=== PATIENT | male | born 1950 | race Caucasian/White ===

== ENCOUNTER 2017-04-05 03:48 | Inpatient (IN) | payer OTHER, BC ==
--- NOTE | 2017-04-05 04:09 | EDPHY ---
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 Patient states that he did a hot yoga class and was very vigorous before going out having sushi last night. Patient tells me that he went had sushi then shortly after he developed severe epigastric achy pain that stays in his epigastric region he has been uncomfortable all night tossing and turning and unable to sleep. He has had associated nausea with this. No vomiting. No diarrhea. He denies shortness of breath however patient tells me that at 1 point the dull achy pain in his epigastric region that is been present constantly from 0930 last night and now 427AM: Is still present. He tells me at 1 point it did radiate a little bit into his left chest. However no shortness of breath or chest pain at this time. Pain is located epigastric region. It is tender mildly on exam. 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 Exam Constitutional appears well nontoxic, triage nursing summary reviewed, vital signs reviewed, awake/alert. Eyes normal conjunctivae and sclera, EOMI, PERRLA. HENT normal inspection, atraumatic, moist mucus membranes, no epistaxis, neck supple/ no meningismus, no raccoon eyes. Respiratory clear to auscultation bilaterally, normal breath sounds, no respiratory distress, no wheezing. Cardiovascular rate normal, regular rhythm, no murmur, no edema, distal pulses normal. Gastrointestinal soft, tender palpation in the epigastric region , no rebound , no guarding, normal bowel sounds, no distension, no pulsatile mass. Genitourinary no CVA tenderness. Musculoskeletal no midline vertebral tenderness, full range of motion, no calf swelling, no tenderness of extremities, no meningismus, good pulses, neurovascularly intact. Skin pink, warm, & dry, no rash, skin atraumatic. Neurologic awake, alert and oriented x 3, AAOx3, moves all 4 extremities equally, motor intact, sensory intact, CN II-XII intact, normal cerebellar, normal vision, normal speech. Psychiatric normal mood/affect. Heme/Lymph/Immune no lymphadenopathy. Differential diagnosis includes but is not limited to and in no particular order : Rule out acute coronary syndrome, Bowel obstruction, appendicitis, gallbladder disease, diverticulitis, colitis, enteritis, perforated viscus, gastritis, GERD, esophagitis, urinary tract infection, pyelonephritis, kidney stones Medical Decision Making: Plan for this patient IV establishment, full photolith operator will check a troponin and EKG given where pain is located however clinically on exam I feel this is more abdominal pain and chest pain. Will obtain EKG troponin, chest x-ray he will be given a GI cocktail to see if this improves his epigastric discomfort. Will check liver enzymes and lipase. Gentle hydration and close re-evaluation. Re-evaluation: EKG interpretation by me on record in [employer] system. Impression time of EKG 4 5:00 a.m., this is sinus rhythm rate of 62 there is no acute ischemic Changes specifically no ST elevation or ST depression 0517AM: This patient noted to have a positive D-dimer over 6. I will proceed with CT angiogram chest abdomen pelvis for pulmonary embolism versus dissection. He is having epigastric pain. His EKG does not indicating acute ischemia. Need to rule out pulmonary embolism and dissection. Chest x-ray one view: Negative for acute cardiopulmonary disease. Image interpreted by myself. 0512AM: This patient does report to me that after GI cocktail his epigastric discomfort has improved. He Still has epigastric abdominal pain. CT scan of the chest abdomen pelvis with IV contrast. The results of the study are show no dissection of the aorta, no aortic dissection or aneurysm, no pulmonary embolism however it does show a high-grade mechanical small-bowel obstruction.. The study was read by Dr. Moreno I viewed the images myself on the PACS system. 0621AM: This patient's scan does not show PE or dissection his EKG is nonischemic, troponin negative. His CT scan does show SBO. I will consult surgery. 0621AM: Dr. Huang. is here evaluating him. 0658AM: Patient seen By Dr. Huang. Recommends Small Bowel follow through with grastrografin. 0732: Patient to get Gastrografin for small-bowel follow-through. Dr. Huang to follow this up. Dr. Beltran aware of this patient in the emergency room. If Gastrografin small-bowel follow-through okay he me be able to be discharged. Source: Patient - Personal History Current Tetanus/Diphtheria Vaccine: Yes Current Tetanus Diphtheria and Acellular Pertussis (TDAP): Yes - Medical/Surgical History Hx Asthma: No Hx Chronic Respiratory Disease: No Hx Diabetes: No Hx Cardiac Disease: No Hx Renal Disease: No Hx Cirrhosis: No Hx Alcoholism: No Hx HIV/AIDS: No Hx Splenectomy or Spleen Trauma: No Other PMH: BRONCITIS, SINUS STUFF, L HIP REPLACEMENT, KNEE SURGERY - Social History Smoking Status: Never smoked Constitutional: Initial Vital Signs Temperature (C) 36.6 C 04/05/17 03:49 Heart Rate 71 04/05/17 03:49 Respiratory Rate 18 04/05/17 03:49 Blood Pressure 161/100 H 04/05/17 03:49 O2 Sat (%) 96 04/05/17 03:49 O2 Delivery Mode Room Air Allergies/Adverse Reactions: ciprofloxacin [From Cipro] Allergy (Intermediate, Verified 04/05/17 13:22) Vomiting metronidazole [From Flagyl] Allergy (Intermediate, Verified 04/05/17 13:23) Vomiting Home Medications: Medication Instructions Recorded Albuterol [Proventil Inhaler HFA 1 - 2 puffs IH Q4H PRN 04/05/17 (*)] Fluticasone Nasal [Flonase Nasal 1 sprays NASAL BID PRN 04/05/17 Stephen (RX)] Medical Decision Making - Data Points Laboratory Results: Laboratory Results 04/05/17 04:10 04/05/17 04:10 Medications Given: Discontinued Medications Al Hydroxide/Mg Hydroxide (Maalox Susp) 30 ml PO ONCE ONE Stop: 04/05/17 04:24 Last Admin: 04/05/17 04:30 Dose: 30 ml Fentanyl (Sublimaze) 50 mcg IVP ONCE ONE Stop: 04/05/17 07:39 Last Admin: 04/05/17 07:44 Dose: Not Given Fentanyl (Sublimaze) 50 mcg IVP EDNOW ONE Stop: 04/05/17 07:44 Last Admin: 04/05/17 07:44 Dose: 50 mcg Hyoscyamine Sulfate (Levsin, Hyomax-Sl) 0.25 mg PO ONCE ONE Stop: 04/05/17 04:24 Last Admin: 04/05/17 04:29 Dose: 0.25 mg Sodium Chloride (Ns) 1,000 mls @ 0 mls/hr IV ONCE ONE PRN Reason: Wide Open Stop: 04/05/17 04:24 Last Admin: 04/05/17 04:37 Dose: 1,000 mls Sodium Chloride (Ns) 1,000 mls @ 0 mls/hr IV ONCE ONE PRN Reason: Wide Open Stop: 04/05/17 09:21 Last Admin: 04/05/17 09:21 Dose: 1,000 mls Cefoxitin Sodium 2 gm/ (Dextrose) 100 mls @ 200 mls/hr IV ONCALL ONE PRN Reason: Protocol Stop: 04/05/17 13:08 Last Admin: 04/05/17 14:06 Dose: Not Given Ketorolac Tromethamine (Toradol) 30 mg IVP ONCE ONE Stop: 04/05/17 07:20 Last Admin: 04/05/17 09:15 Dose: 30 mg Lidocaine (Lidocaine 2% Viscous) 15 ml PO ONCE ONE Stop: 04/05/17 04:24 Last Admin: 04/05/17 04:30 Dose: 15 ml Ondansetron HCl (Zofran) 4 mg IVP EDNOW ONE Stop: 04/05/17 09:21 Last Admin: 04/05/17 09:20 Dose: 4 mg Departure - Departure Disposition: [facility] Acute Clinical Impression: SBO (small bowel obstruction) Condition: Fair
[2017-04-05] MEDS ORDERED: NS 1,000 ML IV ONE ×2 (04:23→09:20)
[2017-04-05] MEDS ORDERED: LIDOCAINE 2% VISCOUS 15 ML UDCUP PO ONE (04:23)
[2017-04-05] MEDS ORDERED: MAG HYDROX/AL HYDROX/SIMETH 30 ML UDCUP PO ONE (04:23)
[2017-04-05] MEDS ORDERED: HYOSCYAMINE SULFATE 0.125 MG TAB PO ONE (04:23)
[2017-04-05 04:28] LABS: % IMMATURE GRANULYOCYTES 0.5 % (0.0-1.1); ABSOLUTE IMMATURE GRANULOCYTES 0.05 10^3/uL (0.00-0.10); ADD DIFF? NO; ADD MORPH? NO; ADD SCAN? NO; ATYPICAL LYMPHOCYTE FLAG 0 (0-99); FRAGMENT RBC FLAG 0 (0-99); HEMATOCRIT 47.9 % (40.0-51.0); HEMOGLOBIN 16.8 g/dL (13.7-17.5); LEFT SHIFT FLG 0 (0-99); LIPEMIA HEMOLYSIS FLAG 90 (0-99); MEAN CELL HEMOGLOBIN 31.5 pg (27.9-34.1); MEAN CELL HEMOGLOBIN CONCENTR. 35.1 g/dL (32.4-36.7); MEAN CELL VOLUME 89.9 fL (81.5-99.8); MEAN PLATELET VOLUME 10.3 fL (8.7-11.7); PLATELET CLUMPS FLAG 0 (0-99); PLATELET COUNT 260 10^3/uL (150-400); RED BLOOD CELL COUNT 5.33 10^6/uL (4.40-6.38); RED CELL DISTRIBUTION WIDTH 12.1 % (11.5-15.2)
[2017-04-05 04:34] LABS: ALANINE AMINOTRANSFERASE 39 IU/L (21-72); ALBUMIN 4.5 g/dL (3.5-5.0); ALKALINE PHOSPHATASE 101 IU/L (38-126); ANION GAP 12 mEq/L (8-16); ASPARTATE AMINOTRANSFERASE 32 IU/L (17-59); BILIRUBIN,TOTAL 0.7 mg/dL (0.1-1.4); BILIRUBIN-CONJUGATED 0.3 mg/dL (0.0-0.5); BILIRUBIN-UNCONJUGATED 0.4 mg/dL (0.0-1.1); CALCIUM 9.8 mg/dL (8.5-10.4); CARBON DIOXIDE 24 mEq/l (22-31); CHLORIDE 106 mEq/L (97-110); GLOMERULAR FILTRATION RATE > 60; GLUCOSE 115 mg/dL (70-100); POTASSIUM 4.1 mEq/L (3.5-5.2); SODIUM 142 mEq/L (134-144); TOTAL PROTEIN 7.8 g/dL (6.3-8.2)
[2017-04-05 04:40] LABS: INR 1.01 (0.83-1.16); PROTIME(PATIENT) 13.2 SEC (12.0-15.0)
[2017-04-05 04:41] LABS: APTT 29.8 SEC (23.0-38.0)
--- NOTE | 2017-04-05 04:45 | CPEKG ---
Heart Rate: 62 RR Interval: 968 P-R Interval: 172 QRSD Interval: 78 QT Interval: 452 QTC Interval: 459 P Sherwood: 60 QRS Sherwood: 20 T Wave Sherwood: 74 EKG Severity - NORMAL ECG - EKG Impression: SINUS RHYTHM Electronically Signed By: Amari Gilliland 05-Apr-2017 07:35:04
[2017-04-05 04:46] LABS: TROPONIN I < 0.012 ng/mL (0-0.034)
[2017-04-05] MEDS ORDERED: IOPAMIDOL (ISOVUE 370) 100 ML BTL IV ONE (05:22)
[2017-04-05] MEDS ORDERED: KETOROLAC 30 MG/1 ML SDV IVP ONE (07:19)
[2017-04-05] MEDS ORDERED: fentaNYL 100 MCG/2 ML INJ IVP ONE ×2 (07:38→07:43)
[2017-04-05] MEDS ORDERED: fentaNYL 100 MCG/2 ML INJ ONE ×4 (07:40→16:00)
--- NOTE | 2017-04-05 07:44 | GCON ---
[f rep st] CONSULTATION DATE OF CONSULTATION: 04/05/2017 REFERRING PHYSICIAN: Amari Gilliland MD REASON FOR EVALUATION: Possible small-bowel obstruction. REASON FOR CONSULTATION: 66-year-old, healthy male, visiting from [place] on a psychiatric retreat, who presents to the emergency room with sudden onset diffuse crampy abdominal pain, starting at 07:30 last evening after eating sushi. He had a bowel movement at 11 o'clock. His pain continued to persist throughout the evening bringing him to the emergency room earlier this morning. ED workup was initially most significant for epigastric discomfort. A cardiac workup was initially entertained, which was unremarkable. Because of a positive D-dimer, the patient underwent axial body imaging. Abdominal images disclosed markedly dilated small bowel with concern for high-grade small-bowel obstruction. Surgery has been requested for further recommendations. The patient was on a recent trip to visit his family in [facility]. Upon return, he was initially complaining of diarrhea, for which he was treated with Cipro and Flagyl back in [place]. Those symptoms were associated with reflux, with associated bronchitis and cough, which has managed with Flonase. He reports that today's symptoms are completely different than those. He has never had a prior abdominal surgery. He reports that since ED arrival his pain has slightly improved. PAST SURGERY HISTORY: GERD. PAST SURGICAL HISTORY: Multiple knee scopes, as well as open repair. SOCIAL HISTORY: No alcohol, no tobacco. He is . He is a practicing psychiatrist. MEDICATIONS: None. FAMILY HISTORY: Noncontributory. REVIEW OF SYSTEMS: Notable for above GI complaints only. Otherwise, negative 10 point review. PHYSICAL EXAMINATION: VITAL SIGNS: Temperature 36.6, blood pressure 160/100, pulse 64, respirations 16. GENERAL: The patient is alert, appropriate, comfortable, anicteric. NECK: No cervical or supraclavicular lymphadenopathy. HEART: Regular. LUNGS: Clear. ABDOMEN: Distended, soft, minimal diffuse tenderness. No rebound. No guarding. EXTREMITIES: Unremarkable. NEUROLOGIC : Unremarkable. LABORATORY DATA: White count 10, hemoglobin 17, platelets of 260. Electrolytes within reference range. Liver enzymes normal. Troponin negative. D-dimer 6. CT imaging of the chest, abdomen and pelvis were directly reviewed on PACS. Abdomen notes probably dilated small bowel loops with fecalization, with a possible transition zone distally and areas of mesenteric edema and small surrounding free fluid. IMPRESSION: Acute onset abdominal pain. Possible high-grade distal small- bowel obstruction. Query possible gastroenteritis, given the constellation of symptoms, and improvement. RECOMMENDATIONS: Will proceed with Gastrografin upper GI for further characterization. If evidence of obstruction, will plan to proceed with diagnostic laparoscopy with reduction afterwards given no antecedent history of abdominal surgery. If Gastrografin continues to clear, the patient can be discharged with expectant management. These findings were discussed with the emergency room physician, Dr. Gilliland. /[id number]/MODL MTDD
[2017-04-05] MEDS ORDERED: ONDANSETRON 4 MG/2 ML VIAL ONE (09:18)
[2017-04-05] MEDS ORDERED: ONDANSETRON 4 MG/2 ML VIAL IVP ONE (09:20)
[2017-04-05] MEDS ORDERED: cefOXitin SODIUM 2 GM in D5W 100 ML IV ONE (12:39)
[2017-04-05] MEDS ORDERED: BUPIVACAINE/EPI 0.5% 30 ML SDV ONE (13:01)
[2017-04-05] MEDS ORDERED: MIDAZOLAM 2 MG/2 ML VIAL ONE (13:49)
[2017-04-05] MEDS ORDERED: PROPOFOL/EMULSION 500 MG/50 ML BOTTLE IV ONE (13:51)
[2017-04-05] MEDS ORDERED: SUCCINYLCHOLINE CHLORIDE*ANESTHESIA ONLY*200 MG/10 ML SYR IVP ONE (14:35)
[2017-04-05] MEDS ORDERED: HYDROmorphONE/DILAUDID 2 MG/ML INJ ONE ×2 (14:38→16:00)
[2017-04-05] MEDS ORDERED: LABETALOL HCL 5 MG/ML 20 ML MDV ONE (14:45)
[2017-04-05] MEDS ORDERED: SUGAMMADEX SODIUM 200 MG/2 ML VIAL IVP ONE (14:54)
[2017-04-05] MEDS ORDERED: PROPOFOL 200 MG/20 ML VIAL ONE (15:33)
--- NOTE | 2017-04-05 15:46 | POSTOPPROG ---
Post Op Note Date of Operation: 04/05/17 Surgeon: Gabriel Huang Anesthesiologist: Dylan Anesthesia: GET(General Endotracheal) Pre-op Diagnosis: SBO Post-op Diagnosis: Same Procedure: Lap SBR Findings: ileal stricture with proximal obstruction Inf/Abcess present in the surg proc area at time of surgery?: No EBL: Minimal Complications: no immediate Specimen(s): ileum
[2017-04-05] MEDS ORDERED: ZOLPIDEM TARTRATE 5 MG TAB PO PRN (15:47)
[2017-04-05] MEDS ORDERED: HYDROmorphONE/DILAUDID 1 MG/ML SYR IVP PRN (15:47)
[2017-04-05] MEDS ORDERED: ONDANSETRON 4 MG/2 ML VIAL IVP PRN (15:47)
[2017-04-05] MEDS ORDERED: ALBUTEROL 3 ML DEYVIAL ONE (15:48)
[2017-04-05] MEDS ORDERED: KETOROLAC 15 MG/1 ML SDV ONE (16:11)
--- NOTE | 2017-04-05 16:24 | GOP ---
[f rep st] OPERATIVE REPORT DATE OF OPERATION: 04/05/2017 SURGEON: Gabriel Huang MD ANESTHESIA: General. ANESTHESIOLOGIST: Dr. Richardson. PREOPERATIVE DIAGNOSIS: Small bowel obstruction. POSTOPERATIVE DIAGNOSIS: Small bowel obstruction. PROCEDURE PERFORMED: Laparoscopic small bowel resection. FINDINGS: Ileal stricture. INDICATIONS: 66-year-old male with a multiple month history of progressive digestive issues. He presents to the emergency room while visiting from out of town with the findings of a small bowel obstruction. He has never had prior abdominal surgery. He is undergoing surgical exploration at this time. DESCRIPTION OF PROCEDURE: General anesthesia was induced. The abdomen was preinjected with 0.5% Marcaine with epinephrine. A Veress needle was placed in the infraumbilical position, followed by a 5 mm trocar. 2 additional left lower quadrant 5 mm ports were inserted. Abdominal exploration revealed a completely decompressed distal ilium. Around the mid ilium was a focal stricture with a completely dilated proximal bowel with areas of edema and mild hemorrhage. There was no fat creeping or bowel wall thickening. The mesentery appeared normal. There was a moderate amount of clear ascitic fluid. The bowel was run toward the ligament of Treitz showing no other areas of suspicion. Liver appeared normal. Visceral surfaces were normal. The stomach was dilated, otherwise normal. The omentum was normal. The midline incision was partially extended allowing for the small bowel to be eviscerated. Digital palpation disclosed a focal stricture without definite mass at this location. The segment was subsequently resected in side to side fashion using 2 firings of the endoscopic AMPARO 75 stapler. The mesenteric dissection was taken between clamps and ties. Excellent luminal patency was assured. Both ends appeared pink, healthy and viable. The bowel was returned to the abdominal cavity. The midline fascia was closed with a running Vicryl suture. The scope was reinserted in the abdominal cavity showing healthy-appearing anastomosis and no bleeding. Trocars were removed under direct visualization. The wounds were closed with Monocryl followed by Dermabond. The patient was taken to recovery room awake, in good condition. /[id number]/MODL MTDD
[2017-04-05] MEDS: KETOROLAC 15 MG/1 ML SDV IVP SCH ×2 (17:46→23:15)
[2017-04-05] MEDS: ALBUTEROL 200 PUFFS/18 GM MDI IH PRN (23:15)
[2017-04-05] MEDS: FLUTICASONE NASAL 120 SPRAYS/16 GM MDI NS PRN (23:25)
[2017-04-06] MEDS: D5W LR 1,000 ML IV SCH ×2 (01:44→10:34)
[2017-04-06] MEDS: KETOROLAC 15 MG/1 ML SDV IVP SCH ×4 (05:23→23:49)
[2017-04-06] MEDS: ALBUTEROL 200 PUFFS/18 GM MDI IH PRN ×3 (14:54→21:02)
--- NOTE | 2017-04-06 16:23 | SOAPPROG ---
SOAP Progress Note Assessment/Plan: Assessment:good night. incisional pain only. +flatus. c/o nasal congestion. avss. comfortable. abd dist, soft. incis clean. pod#1 s/p lap SBR. doing well. NG removed. cont IVF (concentrated urine/chronic dehydration). diet as able. plan for discharge friday assuming no issues (here from [place] - has air BnB). path pending. he will be moving permanently from [place] to [place] upon return home this week. final follow-up TBD pending pathology. repeat lytes in am Plan: 04/06/17 16:20 Objective: Vital Signs Temp Pulse Resp BP Pulse Ox 37.3 C 89 16 156/97 H 91 L 04/06/17 15:36 04/06/17 15:36 04/06/17 15:36 04/06/17 15:36 04/06/17 15:36 04/05/17 04/06/17 04/07/17 05:59 05:59 05:59 Intake Total 4550 2279 Output Total 1050 0 Balance 3500 229 PT 13.2 SEC (12.0-15.0) 04/05/17 04:10 INR 1.01 (0.83-1.16) 04/05/17 04:10 ICD10 Worksheet Patient Problems: Problems Problem Status Onset SBO (small bowel obstruction) Acute
[2017-04-06] MEDS: TEARS/DEXTRAN 70/HYPROMELLOSE 15 ML OPHT.BTL EACHEYE PRN (16:48)
[2017-04-06] MEDS: LR 1,000 ML IV SCH ×2 (17:00→19:30)
[2017-04-06] MEDS: FLUTICASONE NASAL 120 SPRAYS/16 GM MDI NS PRN (21:01)
[2017-04-06] MEDS: HYDROCODONE/APAP 5/325 TAB PO PRN (21:07)
[2017-04-07] MEDS: HYDROCODONE/APAP 5/325 TAB PO PRN (00:01)
[2017-04-07] MEDS: ALBUTEROL 200 PUFFS/18 GM MDI IH PRN ×2 (01:51→12:27)
[2017-04-07 05:05] LABS: ANION GAP 4 mEq/L (8-16); CALCIUM 8.6 mg/dL (8.5-10.4); CARBON DIOXIDE 26 mEq/l (22-31); CHLORIDE 104 mEq/L (97-110); GLOMERULAR FILTRATION RATE > 60; GLUCOSE 106 mg/dL (70-100); POTASSIUM 4.1 mEq/L (3.5-5.2); SODIUM 134 mEq/L (134-144)
[2017-04-07] MEDS: FLUTICASONE NASAL 120 SPRAYS/16 GM MDI NS PRN ×2 (12:27→21:36)
[2017-04-07] MEDS: KETOROLAC 15 MG/1 ML SDV IVP SCH ×3 (13:07→21:56)
[2017-04-07] MEDS ORDERED: DICYCLOMINE 10 MG CAP PO PRN (14:56)
--- NOTE | 2017-04-07 14:56 | SOAPPROG ---
SOAP Progress Note Assessment/Plan: Assessment:c/o sinus pain - prior sinusitis on Z xuan. large, thick, gooey, green drainage. +BM. crampy pain improves with flatus. no nausea. avss. comfortable. tender max/ethmoid sinus bilaterally. abd dist, soft. incis clean. pod#2 s/p lap SBR. doing well. lytes normal. dehydration improved. diet as able. restart zpak. plan for discharge friday/friday assuming no issues (here from [place] - [facility] BnB). path pending. he will be moving permanently from [place] to [place] upon return home this week. final follow-up TBD pending pathology. cont supportive care Plan: 04/06/17 16:20 04/07/17 14:54 Objective: Vital Signs Temp Pulse Resp BP Pulse Ox 37.6 C 87 16 173/94 H 91 L 04/07/17 11:34 04/07/17 11:34 04/07/17 11:34 04/07/17 11:34 04/07/17 11:34 Laboratory Results 04/07/17 04:20 04/06/17 04/07/17 04/08/17 05:59 05:59 05:59 Intake Total 4550 3601 Output Total 1050 2125 525 Balance 3500 1476 -525 PT 13.2 SEC (12.0-15.0) 04/05/17 04:10 INR 1.01 (0.83-1.16) 04/05/17 04:10 ICD10 Worksheet Patient Problems: Problems Problem Status Onset SBO (small bowel obstruction) Acute
[2017-04-07] MEDS ORDERED: AZITHROMYCIN 250 MG TAB PO ONE (14:57)
[2017-04-07] MEDS: TEARS/DEXTRAN 70/HYPROMELLOSE 15 ML OPHT.BTL EACHEYE PRN (21:39)
[2017-04-08] MEDS: KETOROLAC 15 MG/1 ML SDV IVP SCH ×3 (05:40→18:23)
--- NOTE | 2017-04-08 09:46 | SOAPPROG ---
SOAP Progress Note Assessment/Plan: Assessment: POD 3 s/p lap SBR. Patient slept well. + Flatus. Last BM yesterday. Pain reasonably controlled- worse with coughing. Sinus pain and green drainage improving- started on Zpack yesterday. No nausea. Ambulating without difficulty. afeb, VSS, abd soft, distended, mild appropriate tenderness. + ecchymosis. Incision clean, dry, intact. Plan: Path pending. Monitor 1 more day - tentatively plan for D/C tomorrow. Spoke with Blanca (covering for Dr Rosario- pt 's PCP in [place]). Patient will follow up with Dr. Rosario within the week of returning home. He is currently planning to return to [place] tomorrow afternoon and will be there for 10 days before permanently moving to [place]. Plan: 04/08/17 09:45 04/08/17 09:46 Objective: Vital Signs Temp Pulse Resp BP Pulse Ox 36.9 C 77 18 154/94 H 93 04/08/17 07:56 04/08/17 07:56 04/08/17 07:56 04/08/17 07:56 04/08/17 07:56 Laboratory Results 04/07/17 04:20 04/07/17 04/08/17 04/09/17 05:59 05:59 05:59 Intake Total 3601 400 Output Total 2125 525 Balance 1476 -125 PT 13.2 SEC (12.0-15.0) 04/05/17 04:10 INR 1.01 (0.83-1.16) 04/05/17 04:10 ICD10 Worksheet Patient Problems: Problems Problem Status Onset SBO (small bowel obstruction) Acute
[2017-04-08] MEDS ORDERED: traMADol 50 MG TAB PO PRN (09:58)
[2017-04-08] MEDS: AZITHROMYCIN 250 MG TAB PO SCH (10:13)
[2017-04-08] MEDS: TEARS/DEXTRAN 70/HYPROMELLOSE 15 ML OPHT.BTL EACHEYE PRN ×2 (10:15→21:49)
[2017-04-08] MEDS: FLUTICASONE NASAL 120 SPRAYS/16 GM MDI NS PRN ×2 (10:15→21:49)
[2017-04-08 15:29] VITALS: RESP 16
[2017-04-08] MEDS ORDERED: CEPACOL LOZENGE PO PRN (18:01)
[2017-04-09] MEDS: KETOROLAC 15 MG/1 ML SDV IVP SCH ×2 (00:36→05:35)
[2017-04-09 08:10] VITALS: BP 169/101; PULSE 81; TEMP 97.5; O2SAT 94
[2017-04-09] MEDS: AZITHROMYCIN 250 MG TAB PO SCH (08:54)
[2017-04-09] MEDS: FLUTICASONE NASAL 120 SPRAYS/16 GM MDI NS PRN (08:55)
--- NOTE | 2017-04-09 09:49 | SOAPPROG ---
SOAP Progress Note Assessment/Plan: Assessment: POD 3 s/p lap SBR. Patient feels well- eager for d/c. Pain controlled- only utilizing Ibuprofen. Sinus pain and green drainage improving. No nausea. Ambulating without difficulty. afeb, VSS, abd soft, distended, mild appropriate tenderness. + appropriate ecchymosis. Incision clean, dry, intact. Plan: Path pending- we will call patient with results once available. D/c home today ( patient with flight back to [place] this afternoon. Arrangements already made for patient to follow up with Dr. Rosario (PCP in [place]). D/C summary dictated- conf # [id number] Plan: 04/08/17 09:45 04/08/17 09:46 04/09/17 09:47 04/09/17 09:48 Objective: Vital Signs Temp Pulse Resp BP Pulse Ox 36.4 C 81 16 169/101 H 94 04/09/17 08:00 04/09/17 08:00 04/09/17 08:00 04/09/17 08:00 04/09/17 08:00 Laboratory Results 04/07/17 04:20 04/08/17 04/09/17 04/10/17 05:59 05:59 05:59 Intake Total 400 100 Output Total 525 Balance -125 100 PT 13.2 SEC (12.0-15.0) 04/05/17 04:10 INR 1.01 (0.83-1.16) 04/05/17 04:10 ICD10 Worksheet Patient Problems: Problems Problem Status Onset SBO (small bowel obstruction) Acute
--- NOTE | 2017-04-09 10:15 | GDS ---
[f rep st] DISCHARGE SUMMARY HOSPITAL COURSE: The patient presented to [facility] Emergency Room on April 05, 2017. At that time he was diagnosed with a small-bowel obstruction and Dr. Gabriel Huang was consulted. It was subsequently identified that the patient would require a surgical resection for the obstruction. He was taken to the operating room the evening of April 05, [address] Huang. He tolerated the procedure well. He has been monitored in the hospital since, and has made good progress. He has had no complications. While here, he developed some nasal congestion, as well as sinus pain and was initiated on a Z-Ricardo. Otherwise, he has had an uneventful postoperative course. His pathology is still pending and he has plans to be discharged home today. I would note he does live permanently currently in [place] and within the next couple of weeks is planning to relocate permanently to [place]. We have spoken with the patient's primary care physician's office in [place], Dr. Rosario, who has already contacted the patient and made arrangements for an office visit followup with him, as well as an office visit followup with a general surgeon located closer to home. We will be following up with the patient in regard to his pathology report once it is finalized and for a phone followup to see how the patient is feeling. DISCHARGE MEDICATIONS: He will resume his home medications as he was taking preoperatively. He will complete a Z-Ricardo which he has two more days, and we have prescribed Bentyl 10 mg for crampy abdominal pain. The patient is currently only taking ibuprofen for surgical pain. /[id number]/MODL MTDD
== END 2017-04-09 11:24 | disposition home or self-care (01) | DRG 349 ==
LOC: F3E 17:00
PROVIDERS: ADMIT Surgery; ATTEND Surgery
PROC: 0DBB4ZZ Excision of Ileum, Percutaneous Endoscopic Approach (ICD-10-PCS; principal; 2017-04-05 13:55)
DX: K56.60 Unspecified intestinal obstruction (principal); K21.9 Gastro-esophageal reflux disease without esophagitis; J32.9 Chronic sinusitis, unspecified
CPT/HCPCS: 96374; J0330; J0694; J1170; J1885; J2250; J2405; J2704; J3010; J3490; Q9967